=== PATIENT | male | born 1950 | race Caucasian/White ===

== ENCOUNTER 2021-02-14 06:39 | Outpatient (CLI) | payer MEDICARE ==
[2021-02-11 15:49] VITALS: BMI 26.7
[2021-02-14 08:06] VITALS: BP 164/90; TEMP 97.9
[2021-02-14] MEDS ORDERED: Iopamidol-M 200 41% 20 ML VIAL ONE (11:21)
== END 2021-02-14 09:50 | disposition home or self-care (01) ==
LOC: RAD 06:39
PROVIDERS: ATTEND Neurological Surgery
DX: M54.16 Radiculopathy, lumbar region (principal)
CPT/HCPCS: 62304; 72132

== ENCOUNTER 2021-03-04 05:29 | Day surgery (SDC) | payer MEDICARE ==
[2021-03-03 16:07] VITALS: BMI 25.0
[2021-03-04] MEDS ORDERED: Thrombin 5000 UNITS/5 ML VIAL ONE (06:38)
[2021-03-04] MEDS ORDERED: Bupivacaine PF 0.5% 30 ML VIAL ONE (06:38)
[2021-03-04] MEDS ORDERED: EPINEPHrine 1 MG/ML AMP ONE (06:38)
[2021-03-04] MEDS ORDERED: Fentanyl 100 MCG/2 ML VIAL ONE ×2 (06:57)
[2021-03-04] MEDS ORDERED: Ondansetron PF 4 MG/2 ML Vial ONE (07:08)
[2021-03-04] MEDS ORDERED: PROPOFOL 200 MG/20 ML VIAL ONE (07:08)
[2021-03-04] MEDS ORDERED: Rocuronium Bromide 10 MG/ML (10ML VIAL) ONE (07:08)
[2021-03-04] MEDS ORDERED: ePHEDrine 50 MG/ML VIAL ONE (07:08)
[2021-03-04] MEDS ORDERED: Dexamethasone 20 MG/5 ML VIAL ONE (07:08)
[2021-03-04] MEDS ORDERED: PHENYLEPHRINE-NS 100 MCG/ML 10 ML SYRINGE ONE (07:08)
[2021-03-04] MEDS ORDERED: Lidocaine 1% PF 5 ML VIAL ONE (07:08)
[2021-03-04] MEDS ORDERED: Glycopyrrolate 0.2 MG/ML 5 ML SYRINGE ONE (07:08)
[2021-03-04] MEDS ORDERED: Tamsulosin HCl 0.4 MG CAP ONE (09:09)
== END 2021-03-04 12:15 | disposition home or self-care (01) ==
LOC: SDC 05:29
PROVIDERS: ATTEND Neurological Surgery
PROC: 0ST20ZZ Resection of Lumbar Vertebral Disc, Open Approach (ICD-10-PCS; principal; 2021-03-04)
PROC: 01NB0ZZ Release Lumbar Nerve, Open Approach (ICD-10-PCS; 2021-03-04)
DX: M48.061 Spinal stenosis, lumbar region without neurogenic claudication (principal); M54.16 Radiculopathy, lumbar region; I10 Essential (primary) hypertension; I25.10 Atherosclerotic heart disease of native coronary artery without angina pectoris; E03.9 Hypothyroidism, unspecified; E78.5 Hyperlipidemia, unspecified; N40.0 Benign prostatic hyperplasia without lower urinary tract symptoms; Z79.82 Long term (current) use of aspirin; Z79.02 Long term (current) use of antithrombotics/antiplatelets; Z79.899 Other long term (current) drug therapy
CPT/HCPCS: 76000; J0171; J0690; J1100; J2405; J2704; J3010; J3490; S0020

== ENCOUNTER 2022-02-08 06:35 | Outpatient (CLI) | payer MEDICARE ==
[2022-02-07 09:31] VITALS: BMI 25.3
[2022-02-08 07:33] VITALS: BP 154/81; TEMP 97.9
== END 2022-02-08 09:35 | disposition home or self-care (01) ==
LOC: RAD 06:35
PROVIDERS: ATTEND Neurological Surgery
DX: M47.22 Other spondylosis with radiculopathy, cervical region (principal); M48.02 Spinal stenosis, cervical region
CPT/HCPCS: 62302; 72126

== ENCOUNTER 2022-03-15 08:55 | Outpatient (CLI) | payer MEDICARE ==
[2022-03-15 10:49] LABS: Mean Corpuscular HGB CONC 34.5 g/dL (32.0-36.0); Mean Corpuscular Hemoglobin 33.2 pg (27.0-33.0); Mean Corpuscular Volume 96.2 fl (81.2-95.1); Mean Platelet Volume 10.8 fl (7.4-10.4); Platelet Count 233 10x3/uL (150-450); RBC Distribution Width 12.5 % (11.5-14.5); Red Blood Cell (RBC) Count 3.92 10x6/uL (4.32-5.72)
[2022-03-15 11:11] LABS: Anion Gap 15 mmol/L (10-20); BUN (Urea Nitrogen) 18 mg/dL (8.4-25.7); Calc. Creatinine Clearance 0 mL/min (70-130); Calcium 10.2 mg/dL (7.8-10.44); Carbon Dioxide 26 mmol/L (23-31); Chloride 105 mmol/L (98-107); Estimated GFR 89; Glucose 122 mg/dL (83-110); Potassium 4.5 mmol/L (3.5-5.1); Sodium 141 mmol/L (136-145)
== END 2022-03-15 08:56 | disposition home or self-care (01) ==
LOC: LABBT 08:55
PROVIDERS: ATTEND Neurological Surgery
DX: U07.1 COVID-19 (principal); Z01.818 Encounter for other preprocedural examination
CPT/HCPCS: 80048; 85027; 87811; 93005; 93010

== ENCOUNTER 2022-03-16 14:00 | Outpatient (CLI) | payer MEDICARE | END 2022-03-16 14:01 | disposition home or self-care (01) | LOC: LABBT 14:00 | PROVIDERS: ATTEND Neurological Surgery | DX: U07.1 COVID-19 (principal) | CPT/HCPCS: U0003; U0005 ==

== ENCOUNTER 2022-04-19 05:39 | Day surgery (SDC) | payer MEDICARE ==
[2022-04-17 12:34] VITALS: BMI 25.3
[2022-04-19] MEDS ORDERED: CEFAZOLIN 2 GM VIAL ONE ×2 (06:20→11:49)
[2022-04-19] MEDS ORDERED: Lidocaine 1% MPF 2 ML VIAL ONE ×2 (06:20→08:16)
[2022-04-19] MEDS ORDERED: Sodium Chloride 0.9% 100 ML ONE ×2 (06:20→11:49)
[2022-04-19] MEDS ORDERED: Bupivacaine HCl 0.5%/Epinephrine 1:200,000/PF 30 ml Vial ONE (07:19)
[2022-04-19] MEDS ORDERED: fentaNYL Citrate/PF 100 MCG/2 ML SYRINGE ONE (07:30)
[2022-04-19] MEDS ORDERED: Rocuronium Bromide 10 MG/ML (10ML VIAL) ONE (08:16)
[2022-04-19] MEDS ORDERED: Dexamethasone 20 MG/5 ML VIAL ONE (08:16)
[2022-04-19] MEDS ORDERED: PROPOFOL 200 MG/20 ML VIAL ONE (08:16)
[2022-04-19] MEDS ORDERED: Ondansetron PF 4 MG/2 ML Vial ONE (08:16)
[2022-04-19] MEDS ORDERED: SUGAMMADEX SODIUM 200 MG/2 ML VIAL ONE (08:57)
[2022-04-19] MEDS ORDERED: Tamsulosin HCl 0.4 MG CAP ONE (09:26)
== END 2022-04-19 12:40 | disposition home or self-care (01) ==
LOC: SDC 05:39
PROVIDERS: ATTEND Neurological Surgery
PROC: 00PU0MZ Removal of Neurostimulator Lead from Spinal Canal, Open Approach (ICD-10-PCS; principal; 2022-04-19)
DX: T85.112A Breakdown (mechanical) of implanted electronic neurostimulator of spinal cord electrode (lead), initial encounter (principal); M54.12 Radiculopathy, cervical region; E78.5 Hyperlipidemia, unspecified; M19.90 Unspecified osteoarthritis, unspecified site; I11.9 Hypertensive heart disease without heart failure; F17.200 Nicotine dependence, unspecified, uncomplicated; Z79.02 Long term (current) use of antithrombotics/antiplatelets; Z79.82 Long term (current) use of aspirin; Z79.890 Hormone replacement therapy; Z79.899 Other long term (current) drug therapy; Z95.5 Presence of coronary angioplasty implant and graft; Y75.3 Surgical instruments, materials and neurological devices (including sutures) associated with adverse incidents
CPT/HCPCS: 76000; J0690; J1100; J2405; J2704; J3490

== ENCOUNTER 2024-02-25 08:54 | Outpatient (CLI) | payer MEDICARE | END 2024-02-25 08:55 | disposition home or self-care (01) | LOC: BICMAMMO 08:54 | PROVIDERS: ATTEND Nurse Practitioner Family | DX: N63.20 Unspecified lump in the left breast, unspecified quadrant (principal) | CPT/HCPCS: 76642; 77066; G0279 ==